=== PATIENT | male | born 1990 | race Caucasian/White ===

== ENCOUNTER 2025-09-22 00:28 | Emergency (ER) | payer MEDICARE, OTHER ==
[~2025-09-22] VITALS: Ht 180.3 cm; Wt 126.3 kg
[2025-09-22] MEDS ORDERED: CYCLOBENZAPRINE HCL 10 MG TAB PO ONE (00:45)
[2025-09-22] MEDS ORDERED: KETOROLAC TROMETHAMINE 60 MG/2 ML VIAL IM ONE (00:45)
[2025-09-22] MEDS ORDERED: methylPREDNISolone 4 MG HOME.PACK PO ONE (01:30)
[2025-09-22] MEDS ORDERED: CYCLOBENZAPRINE HCL 10 MG HOME.PACK PO ONE (01:30)
[2025-09-22 01:45] VITALS: BP 119/88
[2025-09-22] MEDS ORDERED: LIDOCAINE HCL 4% 1 EACH PATCH TD ONE (01:45)
[2025-09-22] MEDS ORDERED: LIDOCAINE PATCH REMOVAL 1 EA TD SCH (21:00)
== END 2025-09-22 01:46 | disposition home or self-care (01) ==
LOC: ED 00:28
DX: S39.012A Strain of muscle, fascia and tendon of lower back, initial encounter (principal); X58.XXXA Exposure to other specified factors, initial encounter
CPT/HCPCS: 72100; 96372; 99283; A9270; J1885